=== PATIENT | male | born 1955 | race Caucasian/White ===

== ENCOUNTER → 2019-01-26 | Outpatient (CLI) | payer BC ==
[~2019-01-26] MED LIST: METOPROLOL 100 MG TAB PO; NITROGLYCERIN AEROSOL (4.9 GM) SL
[2019-01-26] MEDS: METOPROLOL 100 MG TAB (10:41)
[2019-01-26] MEDS: NITROGLYCERIN AEROSOL (4.9 GM) (11:47)
[2019-01-26] MEDS: SOD CHLORIDE 0.9% 100 ML (12:23)
[2019-01-26] MEDS: IOHEXOL 100 ML (12:23)
== END | disposition home or self-care (01) ==
LOC: C/S 09:03
DX: R94.39 Abnormal result of other cardiovascular function study (principal)
CPT/HCPCS: 75571; 75571-59; 75574